=== PATIENT | male | born 1970 | race Caucasian/White ===

== ENCOUNTER 2021-07-10 19:34 | Emergency (ER) | payer OTHER ==
[~2021-07-10] VITALS: Ht 182.9 cm; Wt 100.0 kg
[~2021-07-10 19:34] MED LIST: CEPH500C3 PO; IBUP-676; SULF1TAB42 PO
[2021-07-10 20:30] VITALS: BP 140/83
[2021-07-10] MEDS ORDERED: ACETAMINOPHEN 500 MG TABLET PO ONE (20:30)
[2021-07-10] MEDS ORDERED: IBUPROFEN 600 MG TABLET PO ONE (20:30)
[2021-07-10] MEDS ORDERED: DOXYCYCLINE HYCLATE 100 MG TABLET PO ONE (20:30)
== END 2021-07-10 20:59 | disposition home or self-care (01) ==
LOC: EMS 19:46
DX: L03.115 Cellulitis of right lower limb (principal); L03.116 Cellulitis of left lower limb; R60.0 Localized edema; F17.210 Nicotine dependence, cigarettes, uncomplicated; F14.90 Cocaine use, unspecified, uncomplicated; F11.90 Opioid use, unspecified, uncomplicated; F19.90 Other psychoactive substance use, unspecified, uncomplicated; F12.90 Cannabis use, unspecified, uncomplicated
CPT/HCPCS: 99284; Z7502; Z7610

== ENCOUNTER 2021-09-06 18:28 | Emergency (ER) | payer OTHER ==
[~2021-09-06] VITALS: Ht 185.4 cm; Wt 99.1 kg
[2021-09-06] MEDS ORDERED: DiphenhydrAMINE HCL 50 MG/ML VIAL IVP ONE (19:30)
[2021-09-06] MEDS ORDERED: METOCLOPRAMIDE HCL 5 MG/ML 2 ML VIAL IVP ONE (19:30)
[2021-09-06] MEDS ORDERED: ACETAMINOPHEN 500 MG TABLET PO ONE (19:30)
[2021-09-06 19:58] LABS: BASOPHILS % (AUTO) 0.5 % (0.0-2.0); EOSINOPHILS % (AUTO) 4.8 % (1.0-6.0); HEMATOCRIT 45.1 % (41-53); HEMOGLOBIN 15.3 g/dL (13.5-17.5); LYMPHOCYTES # (AUTO) 2.7 K/uL (1.0-4.8); LYMPHOCYTES % (AUTO) 37.3 % (22.0-44.0); MEAN CORPUSCULAR HEMOGLOBIN 28.9 pg (26.0-34.0); MEAN CORPUSCULAR VOLUME 85 fL (80-100); MONOCYTES # (AUTO) 0.3 K/uL (0.1-1.0); MONOCYTES % (AUTO) 4.4 % (2.0-9.0); NEUTROPHILS # (AUTO) 3.8 K/uL (1.8-7.7); PLATELET COUNT (AUTO) 203 K/uL (150-450); RED CELL DISTRIBUTION WIDTH 16.8 % (11.5-14.5)
[2021-09-06 20:08] LABS: ANION GAP 8 mmol/L (8-16); CALCIUM, TOTAL 9.3 mg/dL (8.8-10.5); CARBON DIOXIDE 32 mmol/L (22-29); CHLORIDE 102 mmol/L (98-107); CREATININE 1.15 mg/dL (0.60-1.30); GLOMERULAR FILTR. RATE CALC > 60 mL/min (>60); GLUCOSE,RANDOM 114 mg/dL (70-110); POTASSIUM 3.6 mmol/L (3.5-5.1); SODIUM SERUM 142 mmol/L (136-145); UREA NITROGEN, BLOOD 18 mg/dL (7-18)
[2021-09-06 20:14] LABS: ALANINE AMINOTRANSFERASE 26 U/L (12-78); ALBUMIN 3.9 g/dL (3.4-5.0); ALKALINE PHOSPHATASE 85 U/L (46-116); ASPARTATE AMINOTRANSFERASE 21 U/L (15-37); BILIRUBIN,TOTAL 0.3 mg/dL (0.1-1.0); CREATINE KINASE, TOTAL ONLY 49 U/L (39-308); TOTAL PROTEIN, SERUM 8.6 g/dL (6.4-8.2)
[2021-09-06 20:18] LABS: B-TYPE NATRIURETIC PEPTIDE 6 pg/mL (0-100)
[2021-09-06 21:40] VITALS: BP 119/55
== END 2021-09-06 22:00 | disposition home or self-care (01) ==
LOC: EMS 18:33
DX: I10 Essential (primary) hypertension (principal); R51.9 Headache, unspecified; H53.8 Other visual disturbances; F17.210 Nicotine dependence, cigarettes, uncomplicated
CPT/HCPCS: 36415; 70450; 80053; 82550; 83880; 84484; 85025; 93005; 96374; 96375; 99285; J1200; J2765

== ENCOUNTER 2021-09-09 11:55 | Emergency (ER) | payer OTHER ==
[~2021-09-09] VITALS: Ht 185.4 cm; Wt 97.7 kg
[2021-09-09] MEDS ORDERED: IBUPROFEN 600 MG TABLET PO ONE (13:00)
[2021-09-09 14:04] VITALS: BP 153/89
== END 2021-09-09 14:22 | disposition home or self-care (01) ==
LOC: EMS 11:55
DX: R51.9 Headache, unspecified (principal); I10 Essential (primary) hypertension; F17.210 Nicotine dependence, cigarettes, uncomplicated; Z79.899 Other long term (current) drug therapy
CPT/HCPCS: 99283